=== PATIENT | male | born 1965 | race Caucasian/White ===

== ENCOUNTER → 2017-04-12 | Outpatient (CLI) | payer OTHER ==
[~2017-04-12] MED LIST: ALLEGRA ALLERG180 MG PO; AMLODIPINE BESYL5 MG PO; ASPIR 8181 M1 PO; MONTELUKAST SOD10 MG PO; OxyCODONE PO; ZESTRIL,PRINIVI10 MG PO; Zestril,Prinivil PO
== END | disposition home or self-care (01) ==
LOC: CDC 12:35
DX: Z01.810 Encounter for preprocedural cardiovascular examination (principal); K42.9 Umbilical hernia without obstruction or gangrene; R94.31 Abnormal electrocardiogram [ECG] [EKG]
CPT/HCPCS: 93000

== ENCOUNTER 2017-04-19 05:38 | Day surgery (SDC) | payer OTHER ==
[~2017-04-19] VITALS: Ht 172.7 cm; Wt 93.0 kg
[2017-04-19 06:01] VITALS: BP 175/103
[2017-04-19 06:07] VITALS: BP 175/103
[2017-04-19 07:12] VITALS: BP 144/87
[2017-04-19] MEDS ORDERED: NORCO 5/3251 TABLET PO (08:41)
[2017-04-19 10:23] VITALS: BP 132/78
[2017-04-19 11:13] VITALS: BP 134/80
== END 2017-04-19 11:24 | disposition home or self-care (01) ==
LOC: SDC 05:38
PROC: 0WUF4JZ Supplement Abdominal Wall with Synthetic Substitute, Percutaneous Endoscopic Approach (ICD-10-PCS; principal; 2017-04-19)
DX: K42.0 Umbilical hernia with obstruction, without gangrene (principal); I10 Essential (primary) hypertension; J30.9 Allergic rhinitis, unspecified; Z87.891 Personal history of nicotine dependence; Z80.7 Family history of other malignant neoplasms of lymphoid, hematopoietic and related tissues; Z80.1 Family history of malignant neoplasm of trachea, bronchus and lung; Z88.0 Allergy status to penicillin
CPT/HCPCS: C1781; J0330; J0690; J1100; J1885; J2001; J2250; J2405; J2710; J2795; J3010; J3475; J7120; Q0175